=== PATIENT | male | born 2000 | race Caucasian/White ===

== ENCOUNTER 2021-07-03 15:25 | Emergency (ER) | payer SELFPAY ==
[~2021-07-03 15:25] MED LIST: NO HOME MEDICATIONS; NORCO 325 MG-51 TAB PO
== END 2021-07-03 16:52 | disposition left against medical advice (07) ==
LOC: COL.ER 15:25
DX: R69 Illness, unspecified (principal)

== ENCOUNTER 2023-07-08 12:50 | Day surgery (SDC) | payer BC ==
[~2023-07-08] VITALS: Ht 182.9 cm; Wt 108.3 kg
[2023-07-08] MEDS ORDERED: PRIL40 PO (13:17)
[2023-07-08] MEDS ORDERED: ADVIL200 MG (13:18)
[2023-07-08] MEDS ORDERED: MELATONIN ER10 MG PO (13:19)
[2023-07-08 13:46] VITALS: BP 126/81; PULSE 57; TEMP 97.9
--- NOTE | 2023-07-08 13:51 | NUR ---
1312 PT AMBULATORY TO BAY 2 WITH STEADY GAIT, BREATHING EVEN AND UNLABORED. PT IS ALERT AND ORIENTED. REVIEWED CONSENTS AND PT SIGNED. IV ESTABLISHED. LR INFUSING VIA GRAVITY AT [facility]. CALL LIGHT IN REACH. WARM BLANKET PROVIDED.
[2023-07-08 14:35] VITALS: BP 115/68; PULSE 56; TEMP 97.9
--- NOTE | 2023-07-08 14:35 | NUR ---
1435PATIENT RETURNS TO ROOM 2 VIA CART. PATIENT IS DROWSY BUT ALERTS TO VERBAL STIMULI. PATIENT AMBULATES TO RECLINER WITH THE ASSISTANCE OF 2 NURSES. RESPIRATIONS EVEN AND UNLABORED, ON ROOM AIR. VITAL SIGNS OBTAINED. PATIENT GIRLFRIEND BROUGHT BACK TO THE ROOM. PATIENT REQUESTED WATER. NO DIFFICULTIES SWALLOWING. 1455 THIS NURSE DISCONTINUED IV FROM RIGHT HAND WITH NO DIFFICULTIES. IV CATHETER INTACT. 1500 THIS NURSE REVIEWED DISCHARGE INSTRUCTIONS WITH PATIENT AND PATIENT GIRLFRIEND. BOTH VERBALIZED UNDERSTANDING. 1510 DOCTOR IN ROOM TO SPEAK WITH PATIENT. 1515 PATIENT DISCHARGED FROM UNIT VIA WHEELCHAIR IN STABLE CONDITION.
[2023-07-08 14:50] VITALS: BP 116/76; PULSE 52
[2023-07-08 15:05] VITALS: BP 115/79; PULSE 54
== END 2023-07-08 15:15 | disposition home or self-care (01) ==
LOC: SDCO 12:50
DX: K21.9 Gastro-esophageal reflux disease without esophagitis (principal); K92.1 Melena; R10.84 Generalized abdominal pain; K64.0 First degree hemorrhoids; F17.220 Nicotine dependence, chewing tobacco, uncomplicated
CPT/HCPCS: J2704; J7120